=== PATIENT | male | born 1970 | race Caucasian/White ===

== ENCOUNTER 2019-08-20 00:31 | Observation (INO) | payer SELFPAY ==
[2019-08-20] VITALS (11 sets, daily range): BP systolic 106–166; BP diastolic 73–118; PULSE 74–145; RESP 15–20; TEMP 36.6–37.1; O2SAT 95–100; BMI 28.2; BMI 27.8
--- NOTE | 2019-08-20 00:32 | ED.RN ---
CALLED FOR EKG PER RN REQUEST, NO OLD EKGS IN MUSE
--- NOTE | 2019-08-20 00:39 | RAD_ITS ---
STUDY: X-RAY CHEST REASON FOR EXAM: Male, 48 years old. Sudden chest pain, heart racing, (fentanyl use 2 days ago. TECHNIQUE: Single AP portable view of the chest. COMPARISON: None. FINDINGS: There are superimposed monitor leads. The lungs are clear and expanded. There is no demonstrated pleural abnormality. Normal size heart. Normal mediastinum and teodoro. Normal visualized pulmonary arteries. Normal visualized aortic arch and descending thoracic aorta. Normal visualized thoracic spine. Normal visualized ribs, clavicles, and shoulders. There is no demonstrated abnormality of the visualized soft tissue structures of the upper abdomen. RAD/Chest 1 View (Portable) IMPRESSION: No pulmonary edema, congestive heart failure or confluent pneumonia. Electronically Signed: Liana Pelaez MD at 1:01 EDT , Service support ,
--- NOTE | 2019-08-20 00:39 | EKG12_ITS ---
Test Reason : CP Blood Pressure : / mmHG Vent. Rate : 123 BPM Atrial Rate : 123 BPM P-R Int : 148 ms QRS Dur : 086 ms QT Int : 318 ms P-R-T Axes : 068 018 046 degrees QTc Int : 455 ms Sinus tachycardia Nonspecific ST abnormality Abnormal ECG Confirmed by NAN BLOOM MD ([id number]), editorial specialist NEVA MEJIA ([id number] on 08/23/2019 10:45:51 AM Referred By: SHELTON Confirmed By:NAN BLOOM MD
--- NOTE | 2019-08-20 00:41 | ED.DCSUM_ITS ---
History of Present Illness Chief Complaint: Chest Pain Informant: Patient Onset: Today Context: Sudden Onset Timing: Continuous Current Severity: Severe Maximum Severity: Severe Narrative: Patient is a 48-year-old male with history of OR, heroin and methamphetamine abuse presenting with chest pain. Patient states he was at home sleeping when he suddenly had chest pain and feeling like his heart was racing. He describes it as sharp and tight. Patient states that for 10 minutes he had pain in his left chest that was radiating laterally. That has since resolved. Now he has more of the tightness. Patient states he is trying to get clean from heroin. He last used 2 days ago. He denies alcohol or cigarette use. He denies any other complaints at this time such as nausea, abdominal pain or leg swelling. He notes his mother has a history of blood clots in her legs. He denies any history of PE or DVT. Past Medical History - Allergies and Home Meds Allergies/Adverse Reactions: Allergies No Known Allergies Allergy (Verified 08/20/19 00:33) Past Medical History: - - Unclear cardiac history, IV drug use Surgical History: no surgical history Smoking Status: Current some day smoker - Family History Maternal Family History: Reports: No pertinent history Review of Systems All systems negative except as indicated Cardiovascular: Reports: Chest pain, Palpitations, Heart racing Respiratory: Reports: Dyspnea Physical Exam Vital Signs/Narrative: Vital Signs Temp Pulse Resp BP Pulse Ox 08/20/19 00:38 125 H 15 158/96 H 99 08/20/19 00:32 98.8 F 145 H 20 H 166/118 H 100 Inital Vital Signs reviewed: Yes General: Well nourished, Well developed, No Acute Distress Head: Normocephalic, Atraumatic Eyes: Perrl, EOMI ENT: Moist mucous membranes, No rhinorrhea Neck: Supple, Nontender Cardiovascular: Regular rhythm, No murmurs, Tachycardia Respiratory: No distress, CTA bilaterally, Chest nontender Abdomen: Soft, Nontender, Nondistended, Normal bowel sounds Back: Nontender, Normal Inspection Extremities: Nontender, No edema Skin: Normal color, No rash. Negative for: Diaphoresis Neurological: Alert, Oriented x3, Cranial nerves II-XII grossly intact, Normal Strength, Normal Sensation Psychological: Normal affect, Normal Mood, - - Anxious Diagnostic/Tx/Re-eval Chest X-Ray - ED: 1 View, Read by ED Physician, Read by Radiologist, No Acute Disease Clinical Impression(s) from Imaging Studies Chest X-Ray 08/20/19 00:39 IMPRESSION: No pulmonary edema, congestive heart failure or confluent pneumonia. Electronically Signed: Liana Pelaez MD at 1:01 EDT , Service support , Laboratory Data 08/20/19 08/20/19 08/20/19 00:34 00:34 00:34 WBC 13.6 H RBC 5.59 Hgb 15.8 Hct 47.2 MCV 84.4 MCH 28.3 MCHC 33.5 RDW Std Deviation 37.9 RDW Coeff of Mattie 12.4 Plt Count 322 MPV 11.6 Immature Gran % (Auto) 0.400 Neut % (Auto) 60.5 Lymph % (Auto) 25.3 [place] % (Auto) 11.9 H Eos % (Auto) 1.5 Baso % (Auto) 0.4 Absolute Neuts (auto) 8.2 H Absolute Lymphs (auto) 3.45 Nucleated RBC % 0 Diff Path Review May foll D-Dimer Quant (PE/DVT) < 0.27 L Sodium 137 Potassium 3.4 L Chloride 99 Carbon Dioxide 29.0 Anion Gap 9 BUN 12 Creatinine 1.07 Estim Creat Clear Calc 102.01 Est GFR (MDRD) Af Amer 95 Est GFR (MDRD) Non-Af 78 BUN/Creatinine Ratio 11.2 Glucose 106 Calcium 9.7 Troponin I < 0.015 - Rhythm Strip Rhythm Strip: Sinus Tach Rate: 123 Ectopy: None - EKG Initial EKG Interpretation: Sinus Tachycardia, - - Sinus tachycardia rate of 123 Normal SC interval QRS 86 QT/QTc 318/[address] segments - Medical Decision Making Waited for sudden onset of chest pain. He is initially tachycardic and hypertensive upon arrival. Patient does admit to trying to quit heroin and has not used in 2 days. He did use methamphetamines yesterday but not today. He does admit to a cardiac history which sounds like an OR but it is not clear. He admits to not following up and states this was out of state. Patient is given IV fluids. CBC is pertinent only for mildly elevated white blood cell count. This might be reactive. No obvious source of infection is noted. Patient adamantly denies IV drug use. BMP is normal as well as troponin. D-dimer is negative. Patient is improvement of his chest pain with nitroglycerin. Tachycardia and hypertension improved while in the emergency room. He is given a full dose aspirin. He will be admitted to PCU for further cardiac evaluation given his presentation and risk factors. Patient is agreeable to this plan. He is also requesting opioid detox. Admitting physician, Dr. Aguilar is aware. ED Disposition - Plan for ED Patient: Disposition: Acute Care Hospital [facility] Diagnosis: Chest pain, Abuse of both oxycodone and heroin
[2019-08-20 00:48] LABS: Absolute Lymphocyte Count 3.45 X10^3/uL (0.83-4.51); Absolute Neutrophil Count 8.2 X10^3/uL (2.0-7.7); Basophil# 0.06 X10^3/uL; Basophil% 0.4 % (0-1); Eosinophils% 1.5 % (0-5); Hematocrit 47.2 % (40-54); Hemoglobin 15.8 g/dL (13.0-16.5); Lymphocyte # 3.45 X10^3/ul (4.0); Lymphocyte % 25.3 % (19-41); Mean Corp Hgb Conc 33.5 g/dL (32-36); Mean Corpuscular Hgb 28.3 pg (27.0-32.0); Mean Corpuscular Volume 84.4 fL (80-94); Mean Platelet Vol. 11.6 fl (6.2-12.0); Monocyte# 1.62 X10^3/uL; Monocyte% 11.9 % (0-10); NRBC Flagged by Analyzer 0 % (0-5); Neutrophil # 8.23 X10^3/uL (2.7-7.7); Neutrophil % 60.5 % (47-70); POSITIVE DIFFERENTIAL YES; Platelet Count 322 K/mm3 (150-450); RBC Distribution Width CV 12.4 % (11.6-14.6); RBC Distribution Width SD 37.9 fl (35.1-43.9); Red Blood Count 5.59 M/mm3 (4.6-6.2); White Blood Count 13.6 K/mm3 (4.4-11.0)
[2019-08-20] MEDS: Aspirin 81 MG TAB.CHEW 324 MG PO (00:48)
[2019-08-20] MEDS: Ondansetron 4 MG/2 ML Vial IV (00:48)
[2019-08-20] MEDS: 0.9% Normal Saline 1,000 ML 1000 ML IV (00:48)
[2019-08-20] MEDS: Nitroglycerin SL (ED/IMG/CATH) 0.4 MG TABLET SUBLINGUAL ×2 (00:53→01:00)
[2019-08-20 00:54] LABS: Differential Indicated SCAN CRITERIA MET
[2019-08-20 01:02] LABS: Anion Gap 9 (5-15); BUN 12 mg/dL (7-18); BUN/Creat Ratio 11.2 RATIO (10-20); Calcium,Total 9.7 mg/dL (8.5-10.1); Chloride 99 mmol/L (98-107); Creatinine, Serum 1.07 mg/dL (0.70-1.30); EST Glomerular Filtration Rate 78 mL/min (>60); Est Glom Filt Rate - Afr Amer 95 mL/min (>60); Estimated Creatinine Clearance 102.01 ml/min; Glucose 106 mg/dL (74-106); Potassium 3.4 mmol/L (3.5-5.1); Sodium Level 137 mmol/L (136-145)
[2019-08-20 01:06] LABS: D-Dimer Quantitative (DVT/PE) < 0.27 FEU/ug/m (0.27-0.49)
--- NOTE | 2019-08-20 02:02 | HP.PCM_ITS ---
Problem List (1) History of MT (myocardial infarction) Status: Chronic (2) Abuse of both oxycodone and heroin Status: Chronic (3) Chest pain Status: Acute History of Present Illness Date of Admission: 08/20/19 Chief Complaint: chest pain The patient is a 48 year old patient with a past medical history of urinary artery disease status post MT 2001 with no subsequent follow-up and a history of heroin abuse last used 2 days ago presents the emergency room with acute chest pain. Onset of this pain began while at rest and is associated with rapid heart rate increased anxiety and shortness of breath. The pain responded to nitroglycerin x2 and he is now currently chest pain-free. The patient denies smoking or other drugs of abuse including alcohol and wants to get clean from the heroin. He will be admitted to the progressive care unit for observation cardiac enzymes cycled and stress test following that. Past Medical History Past Medical History (Chronic Problems): Chronic Problems History of MT (myocardial infarction) (Chronic) Abuse of both oxycodone and heroin (Chronic) Allergies No Known Allergies Allergy (Verified 08/20/19 00:33) Smoking Status: Current some day smoker Tobacco Use: Chew, - - *Family History Maternal History Items: No pertinent history Review of Systems Constitutional: Denies: Chills, Fever, Weight Change HEENT: Denies: Head Aches, Sinus Congestion, Sinus Drainage Cardiovascular: Reports: Chest Pain. Denies: Palpitations Respiratory: Reports: Shortness of breath at rest. Denies: Cough, Sputum production Gastrointestinal: Denies: Abdominal Pain, Nausea, Vomiting Genitourinary: Denies: Dysuria Musculoskeletal: Denies: Joint Pain, Joint Tenderness Skin: Denies: Rash, Wounds Neurological: Denies: Numbness, Tingling, Focal weakness Psychiatric: Reports: Anxiety. Denies: Depression, Homicidal Ideations, Suicidal Ideations Hematologic/ Lymphatic: Denies: Easy Bruising, Easy Bleeding VTE Information - Inpt Only VTE Present on Admission: No VTE Mechan Device Prophylaxis: None VTE Pharm Prophylaxis ordered?: Yes Patient Problems: Active and Suspected Problems Chest pain (Acute) - Physical Exam Vitals/I&O's: Vital Signs Temp Pulse Resp BP Pulse Ox 98.8 F 78 15 106/73 98 08/20/19 00:32 08/20/19 01:33 08/20/19 01:33 08/20/19 01:33 08/20/19 01:33 Oxygen Flow Rate (L/min) 2 Oxygen Delivery Method Nasal Cannula Weight: 225 lb 12.054 oz Body Mass Index (BMI) 28.2 Intake and Output for Last 24 Hours 08/18/19 08/19/19 08/20/19 23:59 23:59 23:59 Intake Total 1000 / 1000 Balance 1000 / 1000 General: Alert, Oriented x3, Cooperative HEENT: Atraumatic, Normocephalic Neck: Supple Lungs: Clear to auscultation, Normal air movement Cardiovascular: Regular rate, Regular Rhythm, Normal S1, Normal S2, No murmurs Abdomen: Bowel Sounds Present, Soft, Non Tender Extremities: No edema Skin: No rashes Musculoskeletal: No Tenderness to Palpation of Joints or Extremities Neurological: Neuro grossly intact Psych/Mental Status: Normal Affect, Appropriate Laboratory Results 08/20/19 00:34: WBC 13.6 H, RBC 5.59, Hgb 15.8, Hct 47.2, MCV 84.4, MCH 28.3, MCHC 33.5, RDW Std Deviation 37.9, RDW Coeff of Mattie 12.4, Plt Count 322, MPV 11 .6, Immature Gran % (Auto) 0.400, Neut % (Auto) 60.5, Lymph % (Auto) 25.3, [place] % (Auto) 11.9 H, Eos % (Auto) 1.5, Baso % (Auto) 0.4, Absolute Neuts (auto) 8.2 H, Absolute Lymphs (auto) 3.45, Nucleated RBC % 0, Diff Path Review February08/20/19 00:34: Sodium 137, Potassium 3.4 L, Chloride 99, Carbon Dioxide 29.0, Anion Gap 9, BUN 12, Creatinine 1.07, Estim Creat Clear Calc 102.01, Est GFR (MDRD) Af Amer 95, Est GFR (MDRD) Non-Af 78, BUN/Creatinine Ratio 11.2, Glucose 106, Calcium 9.7, Troponin I < 0.015 08/20/19 00:34: D-Dimer Quant (PE/DVT) < 0.27 L Current Medications Nitroglycerin (Nitrostat) 0.4 mg SUBLINGUAL Q5M PRN PRN Reason: Chest pain Last Admin: 08/20/19 01:00 Dose: 0.4 mg Documented by: Assessment/Plan All Active Problems Chest pain (Acute) Chronic Problems History of MT (myocardial infarction) (Chronic) Abuse of both oxycodone and heroin (Chronic) Plan 1. Chest pain/history of MT?admit for observation to progressive care unit, cycle cardiac enzymes, set up nuclear exercise stress test in the morning, avoid narcotics for pain due to addiction, nitroglycerin as needed for chest pain, oxygen as needed per protocol, aspirin daily per routine protocol 2. Consult case management for assistance and resources due to drug addiction 3. DVT prophylaxis?low molecular weight heparin Code Visit OBSV E&M: 01449 Initial observation care L2
[2019-08-20 05:46] LABS: Vista UDS pH Range 6
--- NOTE | 2019-08-20 05:55 | EKG12_ITS ---
Test Reason : Blood Pressure : / mmHG Vent. Rate : 074 BPM Atrial Rate : 074 BPM P-R Int : 168 ms QRS Dur : 088 ms QT Int : 372 ms P-R-T Axes : 043 011 031 degrees QTc Int : 412 ms Normal sinus rhythm Normal ECG When compared with ECG of 20-AUG-2019 00:35, MANUAL COMPARISON REQUIRED, DATA IS UNCONFIRMED Confirmed by MERLE RIBEIRO, NAN ([id number]), subeditor NEVA MEJIA ([id number]) on 08/23/2019 11:41:38 AM Referred By: Confirmed By:NAN BLOOM MD
[2019-08-20 06:14] LABS: Amphetamine Urine VISTA POSITIVE (<1000 ng/mL); Barbiturate Urine VISTA NEGATIVE (< 200 ng/mL); Benzodiazepine Urine VISTA NEGATIVE (< 200 ng/mL); Cocaine Urine VISTA NEGATIVE (< 300 ng/mL); Ecstacy Urine VISTA NEGATIVE (< 500 ng/mL); Methadone Urine VISTA NEGATIVE (< 300 ng/mL); PCP Urine VISTA NEGATIVE (< 25 ng/mL); THC Urine VISTA POSITIVE (< 50 ng/mL)
[2019-08-20 06:24] LABS: Absolute Lymphocyte Count 2.48 X10^3/uL (0.83-4.51); Absolute Neutrophil Count 5.7 X10^3/uL (2.0-7.7); Basophil# 0.06 X10^3/uL; Basophil% 0.6 % (0-1); Eosinophil# 0.16 X10^3/uL; Eosinophils% 1.7 % (0-5); Hematocrit 42.1 % (40-54); Hemoglobin 14.1 g/dL (13.0-16.5); Lymphocyte # 2.48 X10^3/ul (4.0); Lymphocyte % 26.3 % (19-41); Mean Corp Hgb Conc 33.5 g/dL (32-36); Mean Corpuscular Hgb 28.8 pg (27.0-32.0); Mean Corpuscular Volume 85.9 fL (80-94); Monocyte# 1.03 X10^3/uL; Monocyte% 10.9 % (0-10); NRBC Flagged by Analyzer 0 % (0-5); Neutrophil # 5.67 X10^3/uL (2.7-7.7); Neutrophil % 60.2 % (47-70); Platelet Count 257 K/mm3 (150-450); RBC Distribution Width CV 12.5 % (11.6-14.6); RBC Distribution Width SD 39.2 fl (35.1-43.9); White Blood Count 9.4 K/mm3 (4.4-11.0)
[2019-08-20 06:49] LABS: Anion Gap 7 (5-15); BUN 14 mg/dL (7-18); BUN/Creat Ratio 14.3 RATIO (10-20); Calcium,Total 8.8 mg/dL (8.5-10.1); Chloride 105 mmol/L (98-107); Cholesterol 172 mg/dL (200); Creatinine, Serum 0.98 mg/dL (0.70-1.30); EST Glomerular Filtration Rate 87 mL/min (>60); Est Glom Filt Rate - Afr Amer 106 mL/min (>60); Estimated Creatinine Clearance 111.37 ml/min; Glucose 99 mg/dL (74-106); High Density Lipoprotein 55 mg/dL; Potassium 4.4 mmol/L (3.5-5.1); Sodium Level 138 mmol/L (136-145); Triglycerides 85 mg/dL; Very Low Density Lipoprotein 17 mg/dL (5-40)
[2019-08-20] MEDS: Aspirin E.C. 81 MG Tablet PO (06:51)
--- NOTE | 2019-08-20 11:37 | STRESSREP_ITS ---
Stress Test Report Date: 08-20-19 Procedure: Exercise tolerance test/imaging study Indications: Chest pain Consent: Per the patient Procedure: The patient exercised on a Kane protocol for 6 minutes and 30 seconds completing Stage II and 30 seconds of Stage III achieving a peak heart rate of 173 bpm (100 % predicted maximal heart rate) with a peak blood pressure 160/80 mmHg and a peak MET capacity of 7 METs. The baseline ECG demonstrated normal sinus rhythm. The peak exercise ECG demonstrated no obvious ECG changes. There were no cardiac dysrhythmias pretest, during exercise, or recovery. The functional capacity was considered average. There was no complaint of chest discomfort during exercise or recovery. The examination was discontinued secondary to dyspnea and leg discomfort. Impression: 1. Technically adequate (percent predicted maximal heart rate greater than 85%) exercise tolerance test 2. Peak exercise ECG with no obvious ECG changes 3. There were no cardiac dysrhythmias pretest, during exercise, or recovery 4. Nuclear images pending Myocardial perfusion imaging study: Technique: The patient was injected with 15.0 mCi of technetium 99m Cardiolite and subsequently rest SPECT Cardiolite nuclear imaging was obtained in the horizontal long, vertical long, and short axis views. The patient exercised on a Kane protocol for 6 minutes and 30 seconds completing Stage II and 30 seconds of Stage III achieving a peak heart rate of 173 bpm (100 % predicted maximal heart rate) with a peak blood pressure 160/80 mmHg and a peak MET capacity of 7 METs. The patient was injected with 45.0 mCi of technetium 99m Cardiolite and subsequently stress SPECT Cardiolite nuclear imaging was obtained in the horizontal long, vertical long, and short axis views. A gated Cardiolite study at peak stress was obtained. Interpretation: Rest and stress SPECT Cardiolite nuclear imaging status post realignment, normalization, and attenuation correction, demonstrates the appearance of relative uniform tracer uptake and myocardial perfusion appearing within normal limits. There is end systolic thickening and brightening. The gated Cardiolite study demonstrates myocardial thickening and inward wall motion. The reported LVEF is 62 %. Impression: 1. Rest and stress SPECT Cardiolite nuclear imaging demonstrate relative unifor m tracer uptake and myocardial perfusion appearing within normal limits. 2. The gated Cardiolite study reports an LVEF of 62 %. This note was generated with [employer] software. It may contain incorrect words, spelling, and punctuation that were not noted in checking the note before signing.
--- NOTE | 2019-08-20 11:43 | DCINST_ITS ---
- Discharge Diagnoses Current Active Problems: Current Active and Chronic Problems History of PR (myocardial infarction) (Chronic) Abuse of both oxycodone and heroin (Chronic) Chest pain (Acute) You will use the following diet at home:: Cardiac Your food should be the consistency of: Regular Your liquids should be the consistency of: Regular/Thin Discharge Activity: Return to Normal Activity Additional Instructions: Complete abstinence from recreational drugs is essential to your health. Allergies/Adverse Reactions: Allergies No Known Allergies Allergy (Verified 08/20/19 00:33) Primary Care Physician: NOT,DEFINED [NON-STAFF] - Please follow up with your Primary Care Physician in: 1-2 weeks Test Results: Test results from this visit will be discussed in further detail at your follow- up appointment, if applicable. Proposed Discharge Date: 08/20/19
--- NOTE | 2019-08-20 13:27 | CASEMGMT ---
SW received referral to see patient for substance abuse. Patient left before being seen by EFRAIN. Amarilys FRIAS MSW
[2019-08-20 14:18] LABS: Pathologist Review Reviewed
--- NOTE | 2019-08-20 14:54 | PCM.DC.SUM ---
<Lopez Malcolm - Last Filed: 08/20/19 14:54> Discharge Date and Diagnosis Date of Admission: 08/20/19 Date of Discharge: 08/20/19 - Primary Discharge Diagnosis Chest pain-musculoskeletal Polysubstance abuse-heroin, methamphetamine, marijuana - Secondary Discharge Diagnosis Chronic Problems History of IN (myocardial infarction) (Chronic) Abuse of both oxycodone and heroin (Chronic) Hospital Course and Treatment Imaging Results: 08/20/19 05:55 Nuclear Stress Test - Treadmil [NM] AM (NON MEDS) Impression: 1. Rest and stress SPECT Cardiolite nuclear imaging demonstrate relative uniform tracer uptake and myocardial perfusion appearing within normal limits. 2. The gated Cardiolite study reports an LVEF of 62 %. RAD/Chest 1 View (Portable) IMPRESSION: No pulmonary edema, congestive heart failure or confluent pneumonia. Operations: None Procedures: Stress test Summary of Care Provided: Hospital course: The patient is a 48 year old M with past medical history of reported IN in 2001 with no intervention or follow-up care, polysubstance abuse including heroin, methamphetamine, marijuana, who presented to the emergency room with complaints of chest pain. This was described as a left-sided sudden spasm that would come and go periodically without any particular trigger. He had recently quit heroin approximately 2 days prior. He was snorting it frequently and was concerned that he would start injecting he he continued to use. He also had associated racing heart, anxiety, shortness of breath. Tox screen was positive for amphetamines and marijuana. Troponin, EKG, chest x-ray were negative. He was admitted to the PCU on telemetry and had no events on telemetry overnight. The following morning he was taken for a stress test which was negative. His pain was felt to be musculoskeletal. He was discharged home in stable condition and was advised to follow-up with PCP in 1 to 2 weeks. This patient was seen by Lopez Malcolm PA-C under the supervision of Doctor Arroyo. [] - Physical Exam Vitals/I&O's: Vital Signs Temp Pulse Resp BP Pulse Ox 97.9 F 80 16 136/93 H 99 08/20/19 11:46 08/20/19 11:46 08/20/19 11:46 08/20/19 11:46 08/20/19 11:46 Oxygen Flow Rate (L/min) 2 Oxygen Delivery Method Room Air Weight: 222 lb 10.67 oz Body Mass Index (BMI) 27.8 Intake and Output for Last 24 Hours 08/18/19 08/19/19 08/20/19 23:59 23:59 23:59 Intake Total 1000 / 1000 Balance 1000 / 1000 General: Alert, Oriented x3, Cooperative HEENT: Atraumatic, PERRLA, EOMI, Normocephalic Neck: Supple, No JVD, Negative Carotid Bruits Lungs: Clear to auscultation, Normal air movement Cardiovascular: Regular rate, No murmurs Abdomen: Bowel Sounds Present, Soft, Non Tender Extremities: No edema, Capillary Refill Less than 3 Seconds Skin: No rashes, No breakdown Musculoskeletal: No Tenderness to Palpation of Joints or Extremities Neurological: Cranial nerves II-XII grossly intact Psych/Mental Status: Normal Affect, Appropriate Laboratory Results 08/20/19 00:34: WBC 13.6 H, RBC 5.59, Hgb 15.8, Hct 47.2, MCV 84.4, MCH 28.3, MCHC 33.5, RDW Std Deviation 37.9, RDW Coeff of Mattie 12.4, Plt Count 322, MPV 11.6, Immature Gran % (Auto) 0.400, Neut % (Auto) 60.5, Lymph % (Auto) 25.3, [place] % (Auto) 11.9 H, Eos % (Auto) 1.5, Baso % (Auto) 0.4, Absolute Neuts (auto) 8.2 H, Absolute Lymphs (auto) 3.45, Nucleated RBC % 0, Diff Path Review Reviewed 08/20/19 00:34: Sodium 137, Potassium 3.4 L, Chloride 99, Carbon Dioxide 29.0, Anion Gap 9, BUN 12, Creatinine 1.07, Estim Creat Clear Calc 102.01, Est GFR (MDRD) Af Amer 95, Est GFR (MDRD) Non-Af 78, BUN/Creatinine Ratio 11.2, Glucose 106, Calcium 9.7, Troponin I < 0.015 08/20/19 00:34: D-Dimer Quant (PE/DVT) < 0.27 L 08/20/19 03:32: Troponin I < 0.015 08/20/19 05:35: Urine Opiates Screen NEGATIVE, Urine Methadone Screen NEGATIVE, Ur Barbiturates Screen NEGATIVE, Ur Phencyclidine Scrn NEGATIVE, Ur Amphetamines Screen POSITIVE H, U Methamphetamin-MDMA NEGATIVE, U Benzodiazepines Scrn NEGATIVE, Urine Cocaine Screen NEGATIVE, U Cannabinoids Screen POSITIVE H, Ur Drug Screen Comment 08/20/19 06:15: WBC 9.4, RBC 4.90, Hgb 14.1, Hct 42.1, MCV 85.9, MCH 28.8, MCHC 33.5, RDW Std Deviation 39.2, RDW Coeff of Mattie 12.5, Plt Count 257, MPV 12.0, Immature Gran % (Auto) 0.300, Neut % (Auto) 60.2, Lymph % (Auto) 26.3, [place] % (Auto) 10.9 H, Eos % (Auto) 1.7, Baso % (Auto) 0.6, Absolute Neuts (auto) 5.7, Absolute Lymphs (auto) 2.48, Nucleated RBC % 0 08/20/19 06:15: Sodium 138, Potassium 4.4, Chloride 105, Carbon Dioxide 26.0, Anion Gap 7, BUN 14, Creatinine 0.98, Estim Creat Clear Calc 111.37, Est GFR (MDRD) Af Amer 106, Est GFR (MDRD) Non-Af 87, BUN/Creatinine Ratio 14.3, Glucose 99, Calcium 8.8, Troponin I < 0.015, Triglycerides 85, Cholesterol 172, LDL Cholesterol 100, VLDL Cholesterol 17, HDL Cholesterol 55 Discharge Diet: No Restrictions Discharge Activity: Return to Normal Activity Primary Care Physician: NOT,DEFINED [NON-STAFF] - Please follow up with your Primary Care Physician in: 1-2 weeks Disposition: Home Minutes spent on discharge:: 35 Patient Condition:: Stable Medical Necessity - Tobacco Use Smoking Status: Former smoker Tobacco Use: Chew, - Meaningful Use Info Meaningful Use Diagnoses (Choose all that apply): None applicable <Richard Arroyo - Last Filed: 08/20/19 15:01> Discharge Date and Diagnosis - Secondary Discharge Diagnosis Chronic Problems History of IN (myocardial infarction) (Chronic) Abuse of both oxycodone and heroin (Chronic) Hospital Course and Treatment Summary of Care Provided: This patient was seen in conjunction with Lopez Malcolm PA-C . I have independently interviewed and examined the patient and reviewed pertinent historical, laboratory, and other data. Please refer to Lopez Uyn PA-C note for details of this patient's presentation, findings, and recommendations. I have reviewed Lopez bragg and concur with documented findings. In brief, [id number] gentleman with history of polysubstance abuse admitted with chest pain. Placed on a monitored bed IN was ruled out with serial cardiac event subsequently underwent a nuclear stress test which was negative for stress-induced ischemia Hospital course: As documented above - Physical Exam Vitals/I&O's: Vital Signs Temp Pulse Resp BP Pulse Ox 97.9 F 80 16 136/93 H 99 08/20/19 11:46 08/20/19 11:46 08/20/19 11:46 08/20/19 11:46 08/20/19 11:46 Oxygen Flow Rate (L/min) 2 Oxygen Delivery Method Room Air Weight: 101 kg Body Mass Index (BMI) 27.8 Intake and Output for Last 24 Hours 08/18/19 08/19/19 08/20/19 23:59 23:59 23:59 Intake Total 1000 / 1000 Balance 1000 / 1000 Laboratory Results 08/20/19 00:34: WBC 13.6 H, RBC 5.59, Hgb 15.8, Hct 47.2, MCV 84.4, MCH 28.3, MCHC 33.5, RDW Std Deviation 37.9, RDW Coeff of Mattie 12.4, Plt Count 322, MPV 11.6, Immature Gran % (Auto) 0.400, Neut % (Auto) 60.5, Lymph % (Auto) 25.3, [place] % (Auto) 11.9 H, Eos % (Auto) 1.5, Baso % (Auto) 0.4, Absolute Neuts (auto) 8.2 H, Absolute Lymphs (auto) 3.45, Nucleated RBC % 0, Diff Path Review Reviewed 08/20/19 00:34: Sodium 137, Potassium 3.4 L, Chloride 99, Carbon Dioxide 29.0, Anion Gap 9, BUN 12, Creatinine 1.07, Estim Creat Clear Calc 102.01, Est GFR (MDRD) Af Amer 95, Est GFR (MDRD) Non-Af 78, BUN/Creatinine Ratio 11.2, Glucose 106, Calcium 9.7, Troponin I < 0.015 08/20/19 00:34: D-Dimer Quant (PE/DVT) < 0.27 L 08/20/19 03:32: Troponin I < 0.015 08/20/19 05:35: Urine Opiates Screen NEGATIVE, Urine Methadone Screen NEGATIVE, Ur Barbiturates Screen NEGATIVE, Ur Phencyclidine Scrn NEGATIVE, Ur Amphetamines Screen POSITIVE H, U Methamphetamin-MDMA NEGATIVE, U Benzodiazepines Scrn NEGATIVE, Urine Cocaine Screen NEGATIVE, U Cannabinoids Screen POSITIVE H, Ur Drug Screen Comment 08/20/19 06:15: WBC 9.4, RBC 4.90, Hgb 14.1, Hct 42.1, MCV 85.9, MCH 28.8, MCHC 33.5, RDW Std Deviation 39.2, RDW Coeff of Mattie 12.5, Plt Count 257, MPV 12.0, Immature Gran % (Auto) 0.300, Neut % (Auto) 60.2, Lymph % (Auto) 26.3, [place] % (Auto) 10.9 H, Eos % (Auto) 1.7, Baso % (Auto) 0.6, Absolute Neuts (auto) 5.7, Absolute Lymphs (auto) 2.48, Nucleated RBC % 0 08/20/19 06:15: Sodium 138, Potassium 4.4, Chloride 105, Carbon Dioxide 26.0, Anion Gap 7, BUN 14, Creatinine 0.98, Estim Creat Clear Calc 111.37, Est GFR (MDRD) Af Amer 106, Est GFR (MDRD) Non-Af 87, BUN/Creatinine Ratio 14.3, Glucose 99, Calcium 8.8, Troponin I < 0.015, Triglycerides 85, Cholesterol 172, LDL Cholesterol 100, VLDL Cholesterol 17, HDL Cholesterol 55 Code Visit OBSV E&M: [id number] Observ/hosp same date L2
== END 2019-08-20 11:44 | disposition home or self-care (01) ==
LOC: ED 01:04 → PCU 02:20
PROVIDERS: Admitting Provider Family Medicine; Emergency Provider Emergency Medicine; Visit Provider Internal Medicine
DX: R07.89 Other chest pain (principal); I25.2 Old myocardial infarction; F11.10 Opioid abuse, uncomplicated; F15.10 Other stimulant abuse, uncomplicated; F17.220 Nicotine dependence, chewing tobacco, uncomplicated; Z79.899 Other long term (current) drug therapy; Z79.82 Long term (current) use of aspirin; R00.0 Tachycardia, unspecified; I25.10 Atherosclerotic heart disease of native coronary artery without angina pectoris
CPT/HCPCS: 36415; 71045; 78452; 80048; 80061; 80307; 84484; 85025; 85379; 93005; 93017; 96361; 96374; 99218; 99285; A9500; J7030; A4216; G0378; J2405